=== PATIENT | male | born 1995 | race Asian ===

== ENCOUNTER 2023-11-16 20:07 | Emergency (ER) | payer OTHER ==
[~2023-11-16] VITALS: Ht 175.3 cm; Wt 68.0 kg
[2023-11-16 20:20] VITALS: BP 127/82; PULSE 90; RESP 17; TEMP 97.7; O2SAT 97
== END 2023-11-16 21:50 | disposition home or self-care (01) ==
LOC: MED 20:07
DX: S43.492A Other sprain of left shoulder joint, initial encounter (principal); Z98.890 Other specified postprocedural states; V49.88XA Car occupant (driver) (passenger) injured in other specified transport accidents, initial encounter; Y93.89 Activity, other specified; Y92.89 Other specified places as the place of occurrence of the external cause; Y99.8 Other external cause status
CPT/HCPCS: 73030; 99283

== ENCOUNTER 2023-12-04 20:13 | Emergency (ER) | payer OTHER ==
[~2023-12-04] VITALS: Ht 172.7 cm; Wt 68.0 kg
[2023-12-04 20:16] VITALS: BP 132/88; PULSE 94; RESP 18; TEMP 98; O2SAT 99
== END 2023-12-04 20:42 | disposition home or self-care (01) ==
LOC: MED 20:13
DX: S49.92XD Unspecified injury of left shoulder and upper arm, subsequent encounter (principal); V89.2XXD Person injured in unspecified motor-vehicle accident, traffic, subsequent encounter
CPT/HCPCS: 99281

== ENCOUNTER 2023-12-30 10:51 | Outpatient (CLI) | payer OTHER | END 2023-12-30 15:45 | disposition home or self-care (01) | LOC: MRD 10:51 | PROVIDERS: ATTEND Student in an Organized Health Care Education/Training Program | DX: M25.512 Pain in left shoulder (principal) | CPT/HCPCS: 73030 ==